=== PATIENT | female | born 1990 | race Caucasian/White ===

== ENCOUNTER 2019-12-09 02:51 | Emergency (ER) | payer MEDICAID, SELFPAY ==
[2019-12-09 02:53] VITALS: BP 131/82; PULSE 97; RESP 20; TEMP 36.7; O2SAT 100
--- NOTE | 2019-12-09 03:16 | ED.DENTAL ---
HPI - Dental/Oral General Chief complaint: Dental/Oral Stated complaint: Toothache Source: patient Mode of arrival: ambulatory Limitations: no limitations History of Present Illness HPI Narrative: This is a 29-year-old female who presents with a cracked left lower molar occurred approximately 1 to 2 weeks ago recently moved back to the area from [place] and yet to establish with a dentist. Pain has been present for the last couple weeks and has become more intense over last couple of days radiating into her left lower jaw and currently no fever or chills no nausea vomiting no shortness of breath has tried [id number] Tylenol with minimal relief and is currently and not sure how far along she is in her . MD Complaint: tooth pain and tooth injury Teeth map: 1. broken tooth Onset (ago): week(s) Duration: constant Severity: severe Severity scale (1-10): >10 Relieving factors: nothing Exacerbating factors: chewing, cold and drinking fluids Context: history of dental caries Related Data Home Medications Medication Instructions Recorded Confirmed PNV cmb#95-ferrous fumarate-FA 1 tablet PO DAILY 12/09/19 12/09/19 [] Allergies Allergy/AdvReac Type Severity Reaction Status Date / Time ondansetron [From Zofran] AdvReac Other Verified 12/09/19 03:02 Review of Systems Review of Systems: All systems reviewed & are unremarkable except as noted in HPI and below PMFSH Past Medical History Medical History Patient denies medical problems Social History Social History Gender identity (if verbalized by the patient): Female Exam Const: General: no acute distress and alert Orientation/consciousness: patient oriented x3 HENMT: Head: normal to inspection Other: left lower molar dental pain Eyes: Conjunctivae: conjunctivae normal Pupils: Equal, round and reactive pupils present EOM: EOMs intact bilaterally Neck: Neck: normal visual inspection, no lymphadenopathy and no meningeal signs Chest: Chest palpation & inspection: normal inspection of the chest Resp: Effort & Inspection: normal respiratory effort Auscultation: clear to auscultation bilaterally Cardio: Rate: regular rate Rhythm: regular rhythm GI: Auscultation: normal bowel sounds : General: Yes no CVA tenderness Back/Spine/Pelvis: Back: no CVA tenderness Skin: General skin exam: normal color Rashes: no rashes Neuro: General: patient oriented x3 and moves all extremities Extrem: General: normal to inspection Course Course Emergency Course: local nerve block to left lower molar area with 1% lidocaine patient tolerated procedure well and immediately noticed improvement in her pain after local injection. Vital Signs Vital signs: Vital Signs Temperature 36.7 C 12/09/19 02:53 Pulse Rate 97 12/09/19 02:53 Respiratory Rate 20 12/09/19 02:53 Blood Pressure 131/82 12/09/19 02:53 Pulse Oximetry 100 12/09/19 02:53 Temperature 36.7 C 12/09/19 02:53 Pulse Rate 97 12/09/19 02:53 Respiratory Rate 12/09/19 02:53 Blood Pressure 131/82 12/09/19 02:53 Pulse Oximetry 100 12/09/19 02:53 Procedures Nerve Block Nerve Block 1: Nerve block date: 12/09/19 Nerve block time: 03:20 Time out performed: Yes Local Anesthetic: lidocaine 1% Amount of anesthesia used (mL): 5 Side: left Nerve Blocks: other ( Dental) Patient Tolerated Procedure: well and no complications Complications: none Critical Care Time Critical Care Time Critical Care Time: No Discharge Plan Discharge Clinical Impression: Toothache, Fracture of tooth Patient Disposition: Home, Self-Care Condition: Stable Instructions: Antibiotic Form, Toothache (ED) Additional Instructions: follow-up with dentist as soon as possible for further ev
[2019-12-09] MEDS: AMOXICILLIN 500 MG CAPSULE PO (03:19)
[2019-12-09 03:32] VITALS: BP 118/70; PULSE 90; RESP 20; O2SAT 99
== END 2019-12-09 03:34 | disposition home or self-care (01) ==
PROVIDERS: Emergency Provider Emergency Medicine; PCP Family Medicine
DX: K08.89 Other specified disorders of teeth and supporting structures (principal); S02.5XXA Fracture of tooth (traumatic), initial encounter for closed fracture
CPT/HCPCS: 64999; 99283; A9270

== ENCOUNTER 2020-03-05 12:47 | Outpatient (CLI) | payer OTHER, SELFPAY ==
[2020-03-06 14:53] LABS: SARS-CoV-2 RNA PCR Negative
== END 2020-03-05 12:48 | disposition home or self-care (01) ==
PROVIDERS: PCP Family Medicine
DX: Z01.818 Encounter for other preprocedural examination (principal); Z20.828 Contact with and (suspected) exposure to other viral communicable diseases
CPT/HCPCS: 87635; C9803; U0003

== ENCOUNTER 2020-04-23 14:35 | Emergency (ER) | payer OTHER, SELFPAY ==
--- NOTE | ~2020-04-23 | US_ITS ---
EXAMINATION: US pelvic complete DATE: 04/23/2020 15:37 INDICATION: Vaginal bleeding six weeks TECHNIQUE: Multiple transabdominal and endovaginal sonographic images of the pelvis were obtained. COMPARISON: None. FINDINGS: The uterus measures 8.3 x 5.4 x 5.7 cm. The endometrial complex measures 17 mm and is heter ogenous in appearance. There is somewhat increased vascular flow to the endometrium. The ovaries are not visualized however no adnexal abnormality is seen. There is no free fluid in the pelvis. IMPRESSION: 1. Thickened and heterogeneous appearing endometrium with possible increased flow. Findings are nonsp ecific but could reflect retained products of conception. Reviewed, dictated and finalized at location A. [facility] IMPRESSION: 1. Thickened and heterogeneous appearing endometrium with possible increased fl ow. Findings are nonspecific but could reflect retained products of conception.
[2020-04-23 14:49] VITALS: BP 116/80; PULSE 88; RESP 18; TEMP 36.7; O2SAT 99
--- NOTE | 2020-04-23 15:17 | ED.GENADULT ---
HPI - General Adult General Chief complaint: Vaginal Bleeding Stated complaint: vaginal bleeding Source: patient Mode of arrival: ambulatory Limitations: no limitations History of Present Illness HPI narrative: Mallika is a previously healthy 29F ( w/ 4 Csections) that presented to the Ed with vaginal bleeding. She had a on and has had some spotting since. However, 3 days ago she started having increased vaginal bleeding. She reports soaking through a pad every hour for the last 3 days and it is not slowing down. This is much more than her normal menses. She breast fed originally but stopped after a couple weeks. She also reports a foul odor. No CP, SOB, N/V, diarrhea, dysuria or fevers. She does admit chills. She called her OB with these symptoms who recommend that she go to the ED. Related Data Home Medications Medication Instructions Recorded Confirmed No Home Medications 04/23/20 04/23/20 Allergies Allergy/AdvReac Type Severity Reaction Status Date / Time ondansetron [From Zofran] AdvReac Other Verified 12/09/19 03:02 Review of Systems Constitutional: Constitutional: Reports chills, Denies fatigue and Denies fever(s) Eyes: Eyes: Reports no additional eye complaints ENT: Reports system reviewed and no additional complaints, except as documented Cardiovascular: Cardiovascular: Reports no additional cardiovascular complaints Respiratory: Respiratory: Reports no additional respiratory complaints Gastrointestinal: Gastrointestinal: Reports no additional gastrointestinal complaints Genitourinary: Genitourinary: Reports as per HPI Musculoskeletal: Musculoskeletal: Reports no additional musculoskeletal complaints Integumentary/Breasts: Skin/Breast: Reports system reviewed and no additional complaints, except as docu Neurologic: Reports system reviewed and no additional complaints, except as documented Psychiatric: Psychiatric: Reports no additional psychiatric complaints Endocrine: Endocrine: Reports no additional endocrine complaints Hematologic/Lymphatic: Hematologic/Lymphatic: Reports no additional hematologic/lymphatic complaints Allergic/Immunologic: Allergic/Immunologic: Reports no additional allergic/immunologic complaints [facility] Past Medical History Medical History (Updated 04/23/20 @ 17:13 by Jay Whipple DO) Patient denies medical problems Social History Social History Gender identity (if verbalized by the patient): Female Exam Const: General: no acute distress and alert Nutritional Appearance: well nourished Orientation/consciousness: patient oriented x3 Limitations: No altered mental status HENMT: Head: normal to inspection Eyes: Conjunctivae: conjunctivae normal Pupils: Equal, round and reactive pupils present Neck: Neck: normal visual inspection Chest: Chest palpation & inspection: normal inspection of the chest Resp: Effort & Inspection: normal respiratory effort Auscultation: clear to auscultation bilaterally Cardio: Rate: regular rate Rhythm: regular rhythm GI: GI Palp: Yes Soft to palpation, No Tenderness to palpation present (GI) and No Guarding due to palpation present (GI) : General: Yes no CVA tenderness Other: Deferred vaginal exam as the US showed potential retained products and she will need another exam anywayfor the procedure so will wait to save her discomfort Back/Spine/Pelvis: Back: no CVA tenderness Skin: General skin exam: normal color Neuro: General: patient oriented x3 and moves all extremities Extrem: General: normal to inspection Psych: Mental Status: mental status grossly normal Course Course Emergency Course: Mallika was evaluated. Ordered labs, UA and US. EXAMINATION: US pelvic complete DATE: 04/23/2020 15:37 INDICATION: Vaginal bleeding six weeks TECHNIQUE: Multiple transabdominal and endovaginal sonographic images of the pelvis were ob
[2020-04-23 15:41] LABS: Basophils Absolute Auto 0.03 K/mm3 (0.00-0.10); Basophils Percent Auto 0.4 % (0.0-1.0); Eosinophils Absolute Auto 0.07 K/mm3 (0.02-0.50); Hemoglobin 12.2 g/dL (12.0-15.0); Immature Granulocyte Absolute 0.01 K/mm3 (0.00-0.00); Immature Granulocyte Percent A 0.1 % (0.0-0.0); Lymphocytes Absolute Auto 3.45 K/mm3 (1.10-4.50); Lymphocytes Percent Auto 48.1 % (18.0-42.0); Mean Corpuscular HGB Conc 32.1 g/dL (32.0-36.0); Mean Corpuscular Volume 87.2 fL (78.0-102.0); Mean Platelet Volume 9.2 fl (9.2-11.8); Monocytes Absolute Auto 0.32 K/mm3 (0.10-0.90); Monocytes Percent Auto 4.5 % (2.0-11.0); Neutrophils Absolute Auto 3.3 K/mm3 (1.7-7.2); Neutrophils Percent Auto 45.9 % (50.0-70.0); Platelet Count Result 362 K/mm3 (150-420); Red Blood Count 4.36 M/mm3 (4.20-5.40); Red Cell Distribution Width 14.8 % (11.6-14.4); White Blood Count 7.2 K/mm3 (4.8-10.8)
[2020-04-23 15:53] LABS: INR 0.9; Prothrombin Time 10.3 Seconds (9.50-12.10)
[2020-04-23 15:55] LABS: Add Urine Microscopic? YES; Appearance Urine Turbid (Clear); Bilirubin Urine 1+ (Negative); Blood Urine 3+ (Negative); Color Urine Red (Yellow); Glucose Urine UA Negative (Negative); Ketones Urine Trace (Negative); Leukocyte Esterase Ur Negative LEU/UL (Negative); Nitrate Urine Negative (Negative); Protein Urine 2+ (Negative); Specific Grav Ur >= 1.030 (1.010-1.020); Urobilinogen Urine 0.2 mg/dL (0.2-1.0); pH Urine 5.5 (5.0-8.0)
[2020-04-23 15:58] LABS: Alanine Aminotransferase 31 U/L (14-59); Albumin Level 3.5 g/dL (3.4-5.0); Alkaline Phosphatase 84 U/L (46-116); Anion Gap 5 mmol/L (8-16); Aspartate Amino Transferase 17 U/L (15-37); Bilirubin,Total 0.2 mg/dL (0.00-1.00); Blood Urea Nitrogen 11 mg/dL (7-18); Calcium 9.1 mg/dL (8.5-10.1); Carbon Dioxide 28 mmol/L (21-32); Chloride 104 mmol/L (98-108); Estimated CRCL calculation 76 ml/min; Estimated Glomerular Filt Rate > 60; Glucose 86 mg/dL (70-99); Osmolality Calculated 282 mOsm/kg (285-295); Potassium 3.9 mmol/L (3.5-5.1); Sodium 137 mmol/L (136-145); Total Protein 6.9 g/dL (6.4-8.2)
[2020-04-23 16:01] LABS: RBC Urine >75 /hpf (0-2)
[2020-04-23 16:02] LABS: Bacteria Urine 2+ /hpf; Squamous Epithelial Cell Urine Few /hpf (Few)
[2020-04-23 16:25] VITALS: BP 116/64; PULSE 78
[2020-04-23 16:32] VITALS: BP 118/82; PULSE 89
--- NOTE | 2020-04-23 17:29 | PC.NURSE ---
Pt to go to [facility] room 292
== END 2020-04-23 17:41 | disposition short-term general hospital (02) ==
PROVIDERS: Emergency Provider Family Medicine
DX: O72.2 Delayed and secondary postpartum hemorrhage (principal)
CPT/HCPCS: 36415; 76856; 80053; 81001; 85025; 85610; 86850; 86900; 86901; 87491; 87591; 87661; 99284; 99285

== ENCOUNTER 2020-04-23 19:30 | Observation (INO) | payer OTHER, SELFPAY ==
--- NOTE | 2020-04-23 19:17 | ADMGEN ---
This patient, Mallika Casiano, was admitted to OB 2nd Floor Room 291-00. Patient/family oriented to hospital policies and general routines including ID bracelet, bed and alarms, visiting hours, pain management, procedures, bathroom and other care routines, personal items, smoking policy, room service/diet, and visiting hours. Information on how to activate the Rapid Response Team has been discussed. Patient/Family are encouraged to report perceived risks to care and to ask questions if they do not understand what they are told or what they should do.
--- NOTE | 2020-04-23 19:34 | PM.IMHP ---
H&P: HPI History of Present Illness Date/Time: 04/23/20 19:34 Chief Complaint: vaginal bleeding Narrative: Mallika Casiano is a 29 year old female who was transferred to us after presenting to the ED in [place] for vaginal bleeding. Pt had a repeat delivery on 03/08/20. She states she had normal expected bleeding immediately . She states there was one point a few weeks ago she thought she had an infection as she had some pelvic discomfort and an odor to her bleeding. She denies any fevers, chills, nausea, vomiting. Pt states her bleeding lightened up after a few weeks but still had daily spotting. She states that 3 days ago her bleeding increased. She is having bleeding heavier than a period. Pt states she was wearing 2 pads at a time and soaking through to her clothing. Of note, pt states she stopped breast feeding approximately 2 weeks ago. She had a pelvic US in [place] that showed an endometrial thickness of 17mm with heterogenous material possibly retained products. Pt states her bleeding has slowed down since her initial presentation. Review of Systems Review of Systems: All systems reviewed & are unremarkable except as noted in HPI and below PMFSH Past Medical History Medical History Patient denies medical problems Social History Social History (Updated 04/23/20 @ 19:39 by Gallito Frausto MD) Smoking packs per day: 0.5 Smoking cigarettes per day: 10.0 Smoking status: Current every day smoker Tobacco type: cigarettes Gender identity (if verbalized by the patient): Female Meds Home Medications and Allergies Home Medications Medication Instructions Recorded Confirmed Type No Home Medications 04/23/20 04/23/20 History Allergies Allergy/AdvReac Type Severity Reaction Status Date / Time ondansetron [From Zofran] AdvReac Other Verified 12/09/19 03:02 Exam Const: General: cooperative and healthy appearing HENMT: Head: normal to inspection Eyes: General: appearance normal, both eyes and all related structures Neck: Neck: normal visual inspection Resp: Effort & Inspection: normal respiratory effort Auscultation: clear to auscultation bilaterally Cardio: Jugular venous distension: no JVD Rate: regular rate Rhythm: regular rhythm GI: Inspection: normal to inspection GI Palp: No abdominal tenderness, Yes Soft to palpation and No Guarding due to palpation present (GI) Auscultation: normal bowel sounds : External Female Exam: normal external appearance Speculum Exam - Vagina: normal appearance of the vagina, normal vaginal discharge, no lacerations, no lesions and vaginal bleeding (dark dried blood in the vaginal vault, no active bleeding) Speculum Exam - Cervix: normal appearance of the cervix Skin: General skin exam: normal color and no rashes or lesions noted Neuro: Cognition (Neuro): normal cognition Speech: normal speech Extrem: General: normal to inspection and full ROM Psych: Appearance: grossly normal Mental Status: mental status grossly normal Speech and movement: Normal speech and movement present Assessment and Plan Assessment and plan (1) Hemorrhage due to retained products of conception: Code(s): O72.2 - Delayed and secondary hemorrhage Status: Acute Assessment and Plan: Pt is s/p repeat c/section on 03/08/20 pt had acute menorrhagia starting 3 days ago pt reports continued bleeding since delivery no acute bleeding on exam, pt had a dry pad since she left the other hospital [facility] H/H pelvic US showed endometrial thickness of 17mm with heterogenous material, possibly retained products of conception given pt acute menorrhagia and US findings, would recommend and dilation plan for NPO after midnight and D&C tomorrow Will give IVF at 125 ml/hr overnight will start tranexamic acid to stop any further bleeding prior to surgery
[2020-04-23 19:45] VITALS: BP 110/61; PULSE 84; RESP 16; TEMP 36.4; O2SAT 100
[2020-04-23] MEDS: LACTATED RINGERS 1,000 ML 125 ML IV CONT (21:05)
[2020-04-23] MEDS: TRANEXAMIC ACID 1,000MG/ISO100 1,000 MG/100 ML BAG 200 MG IVPB (21:06)
[2020-04-23] MEDS: NICOTINE (*PBKC) 21 MG PATCH 1 PATCH TRANSDERM (21:47)
[2020-04-24] VITALS (12 sets, daily range): BP systolic 99–113; BP diastolic 63–79; PULSE 60–92; RESP 12–20; TEMP 36.1–36.9; O2SAT 97–100; BMI 24.6
[2020-04-24 05:08] LABS: Hematocrit 34.3 % (37.0-47.0)
[2020-04-24] MEDS: LACTATED RINGERS 1,000 ML 30 ML IV CONT (07:00)
--- NOTE | 2020-04-24 07:24 | PC.NURSE ---
Pt. to surgery via stretcher at 0645. Report given via phone SBAR sent.
--- NOTE | 2020-04-24 07:24 | WPDHPUPDATE1 ---
History and Physical Update Update Date/Time: 04/24/20 07:24 History and Physical has been reviewed, including an updated exam of the patient. There are NO changes in the patient's condition. Risks, benefits, and alternatives have been discussed and questions answered. Patient agrees to proceed with procedure.
--- NOTE | 2020-04-24 07:53 | WPDANESEPPF ---
Anes - Initial Pre Proc Eval Procedure: Operation Date: 04/24/20 08:00 Proposed Procedures p SUCTION DILITATION AND CURETTAGE - Gallito Frausto MD Date/Time: 04/24/20 07:53 Surgeon: Gallito Frausto MD Pre Op Diagnosis: Retained Products of Conception with Hemorrhage Patient Data Age: 29 Gender: F Height: 1.68 m Weight: 69.3 kg Last Vital Signs Temp 36.2 C L 04/24/20 04:00 Pulse 92 04/24/20 04:00 Resp 16 04/24/20 04:00 BP 111/74 04/24/20 04:00 Pulse Ox 100 04/24/20 04:00 Allergies Allergy/AdvReac Type Severity Reaction Status Date / Time ondansetron [From Zofran] AdvReac Unknown Hives Verified 04/24/20 06:56 Home Medications Medication Instructions Recorded Confirmed Type No Home Medications 04/23/20 04/24/20 History Laboratory Tests 04/24/20 04:29 Hgb 11.0 g/dL L g/dL (12.0-15.0) Hct 34.3 % L % (37.0-47.0) Patient hx anesthesia problems: none Family hx anesthesia problems: none ON LICENSE OF [facility] Past Medical History Medical History (Updated 04/24/20 @ 00:00 by Reva Reece) Patient denies medical problems Social History Social History (Updated 04/23/20 @ 19:39 by Gallito Frausto MD) Smoking packs per day: 0.5 Smoking cigarettes per day: 10.0 Smoking status: Current every day smoker Tobacco type: cigarettes Gender identity (if verbalized by the patient): Female Anes - Eval Final PreProcedure Day of Procedure 04/24/20 07:53 Patient weight: normal Heart: regular rate and rhythm Lungs: clear to auscultation and normal air movement Airway: Mallampati scale class II Neurological: alert and oriented Last oral intake: >/= 8 hours ASA classification: II Emergent: no Anesthetic plan: proceed Anesthesia type and monitoring: general GIVS and standard monitoring Informed Consent: The patient's anesthetic plan and its attendant risks and benefits were discussed with the patient/family/POA. Questions were solicited and answers provided to the satisfaction of the patient/family/POA.
--- NOTE | 2020-04-24 08:29 | PM.PROC ---
Procedure Note - Detailed Date of procedure: 04/24/20 Pre-op diagnosis: Retained Products of Conception with Hemorrhage Post-op diagnosis: same Procedure performed: Suction dilation and curettage Description of procedure: Antibiotics: Doxycycline Findings: endometrial cavity with heterogeneous material possibly products of conception Complications: none Specimens: endometrial contents- products of conception EBL: 100 mL Indications: Patients presented with acute onset menorrhagia 6 weeks . US showed thickened endometrial cavity with heterogeneous material possibly products of conception. Procedure: The patient was taken to the operating room after thickened endometrium had been noted on on transvaginal ultrasound. The risks, benefits and alternatives of the procedure were reviewed with the patient and informed consent was obtained. The patient was taken to the OR and anesthesia was noted to be adequate. The patient was placed in the dorsolithotomy position. Pelvic exam was performed with findings noted above. The patient was prepped and draped in the usual sterile fashion. Watson retractors were placed anteriorly and posteriorly in the vagina and the cervix was grasped with an Tenaculum clamp. Paracervical block was then performed. The cervix was dilated further to allow for passage of a 8mm suction curette. The 8mm suction curette was gently advanced to the fundus, suction was activated, and the tip was rotated while being withdrawn to clear the uterus of products all under direct US visualization. This suction process was repeated 4 additional times due to the quantity of material in the uterus. The sharp curette was introduced and advanced to the fundus to remove any remaining products. The suction curette was reintroduced one final time to ensure all products had been removed, again all under US guidance. The Tenaculum clamp was removed. Good hemostasis was noted. Instrument, sponge, and sharp counts were correct. Patient tolerated the procedure well and was taken to the recovery room in stable condition. Surgeon: Gallito Frausto MD Estimated blood loss (mL): 100 Urine output (mL): 50 Drains: No Packing: No Pathology: yes (endometrial contents) Complications: No immediate complications Condition: stable Disposition: PACU
[2020-04-24] MEDS: fentaNYL CITRATE INJ (*CRX) 100 MCG/2 ML VIAL 25 MCG IV PUSH ×6 (08:52→09:17)
[2020-04-24] MEDS: DOXYCYCLINE HYCLATE 100 MG TABLET 200 MG PO (11:53)
--- NOTE | 2020-04-25 07:10 | WPDANESPN ---
Anes - Prog Note Post-Op Date/Time: 04/25/20 07:10 Cardiovascular status: normal Respiratory status: normal Airway patency: baseline Mental status: baseline Post-Op hydration status: normal Vital Signs: Last Vital Signs Temp 98.4 F 04/24/20 10:30 Pulse 67 04/24/20 10:30 Resp 16 04/24/20 10:30 BP 113/64 04/24/20 10:30 Pulse Ox 100 04/24/20 10:30 Pain Score (VAS): 05/06 I/O: Intake & Output 04/24/20 04/24/20 04/25/20 15:59 23:59 07:59 Intake Total 300 Output Total 100 Balance 200 Laboratory Tests 04/24/20 04:29 Post-procedural complaints: none Patient Feedback: Patient satisfied with anesthetic care.
--- NOTE | 2020-05-03 07:15 | PM.DS ---
DS: Admitting Diagnosis Admitting Diagnosis Admitting Diagnosis: abnormal uterine bleeding DS: Summary Hospital Course Hospital Course: 29 yo female who presented with acute menorrhagia. Pt underwent suction D&C for surgical management. Hospital course was uncomplicated and she was d/c home on HD#1. Status at Discharge Functional status at discharge: independent ambulation Overall status at discharge: patient is back to baseline Time Spent with Patient Time attestation: Total time spent providing and/or coordinating discharge services: Time spent: Less than 30 minutes DS: Data Data Completed and Pending Completed studies during hospitalization: Pending at discharge 04/24/20 08:21 Surgical [PTH] Routine Discharge Plan Discharge Attending physician on discharge: Gallito Frausto Discharging Clinician: Gallito Frausto Patient Disposition: Home, Self-Care Activity: pelvic rest Diet: regular Patient Instructions: Dilation and Curettage (DC) Stand Alone Forms: General Discharge Information Follow-up/Referrals: Gallito Frausto MD [Physician] - 2 Weeks Discharge Medications: New acetaminophen 500 mg capsule 500 mg PO Q6H PRN (Reason: pain) Qty: 30 RF: 0 ibuprofen 600 mg tablet 600 mg PO Q6H PRN (Reason: pain) Qty: 30 RF: 0 norethindrone (contraceptive) [Ortho Micronor] 0.35 mg tablet 0.35 mg PO DAILY Qty: 84 RF: 3 Date of admission: 04/23/20 19:30 Primary Care Provider: UNKNOWN,DOCTOR Admitting Provider: Gallito Frausto Attending physician on admission: Gallito Frausto Condition: Stable
== END 2020-04-24 11:57 | disposition home or self-care (01) ==
PROVIDERS: Admitting Provider Student in an Organized Health Care Education/Training Program; Visit Provider Student in an Organized Health Care Education/Training Program
PROC: (CPT 59160; principal; 2020-04-24 08:00)
DX: O72.2 Delayed and secondary postpartum hemorrhage (principal); F17.210 Nicotine dependence, cigarettes, uncomplicated
CPT/HCPCS: 59160; 36415; 85014; 85018; 88305; 96365; A9270; G0378; G0379; J2250; J2704; J3010; J7120

== ENCOUNTER 2020-05-08 16:05 | Emergency (ER) | payer OTHER, SELFPAY ==
[2020-05-08 16:27] VITALS: BP 124/99; PULSE 90; RESP 20; TEMP 36.3; O2SAT 99
[2020-05-08 16:57] LABS: Pregnancy On Board Control Positive; Urine Pregnancy Test Negative
[2020-05-08 17:01] LABS: Appearance Urine Sl Cloudy (Clear); Bilirubin Urine 1+ (Negative); Color Urine Yellow (Yellow); Glucose Urine UA Negative (Negative); Ketones Urine 1+ (Negative); Leukocyte Esterase Ur Negative (Negative); Nitrate Urine Negative (Negative); Protein Urine Negative (Negative); Specific Grav Ur >= 1.030 (1.010-1.020); Urobilinogen Urine 0.2 mg/dL (0.2-1.0); pH Urine 5.5 (5.0-8.0)
[2020-05-08 17:02] LABS: Add Urine Microscopic? YES; Blood Urine Trace-Intact (Negative)
[2020-05-08 17:05] LABS: WBC Urine 0-3 /hpf (0-3)
[2020-05-08 17:06] LABS: Bacteria Urine 3+ /hpf; Squamous Epithelial Cell Urine Many /hpf (Few)
[2020-05-08] MEDS: ONDANSETRON HCL ODT 4 MG TABLET PO (17:07)
[2020-05-08] MEDS: PROCHLORPERAZINE MALEATE 5 MG TABLET PO (17:07)
[2020-05-08] MEDS: KETOROLAC (*BKC) 60 MG/2 ML VIAL IM (17:08)
[2020-05-08] MEDS: DIVALPROEX SODIUM 250 MG TAB.ER.24H 750 MG PO (17:09)
[2020-05-08 17:14] LABS: Basophils Absolute Auto 0.02 K/mm3 (0.00-0.10); Basophils Percent Auto 0.3 % (0.0-1.0); Eosinophils Absolute Auto 0.02 K/mm3 (0.02-0.50); Eosinophils Percent Auto 0.3 % (1.0-6.0); Hemoglobin 13.2 g/dL (12.0-15.0); Immature Granulocyte Absolute 0.02 K/mm3 (0.00-0.00); Immature Granulocyte Percent A 0.3 % (0.0-0.0); Lymphocytes Absolute Auto 3.07 K/mm3 (1.10-4.50); Lymphocytes Percent Auto 43.2 % (18.0-42.0); Mean Corpuscular HGB Conc 32.2 g/dL (32.0-36.0); Mean Corpuscular Hemoglobin 27.8 pg (27.0-31.0); Mean Corpuscular Volume 86.5 fL (78.0-102.0); Mean Platelet Volume 8.9 fl (9.2-11.8); Monocytes Absolute Auto 0.29 K/mm3 (0.10-0.90); Monocytes Percent Auto 4.1 % (2.0-11.0); Neutrophils Absolute Auto 3.7 K/mm3 (1.7-7.2); Neutrophils Percent Auto 51.8 % (50.0-70.0); Platelet Count Result 330 K/mm3 (150-420); Red Blood Count 4.74 M/mm3 (4.20-5.40); Red Cell Distribution Width 15.3 % (11.6-14.4); White Blood Count 7.1 K/mm3 (4.8-10.8)
--- NOTE | 2020-05-08 17:19 | ED.HA ---
HPI - Headache General Chief Complaint: Headache Stated Complaint: headache Time Seen by Provider: 05/08/20 16:35 Source: patient Mode of arrival: ambulatory Limitations: no limitations History of Present Illness HPI Narrative: Patient comes in with headache, similar to migraines she has had that has gone on for 1 week. She comes in because of continued discomfort. Head ache is sharp, moderately severe, ongoing, partially relieved by tylenol. Nothing has helped stop the headache at home. She has throbbing pain behind her right eye that has been ongoing for 1 week. Pertinent past history: migraines Onset description: gradually Location: right Severity: moderate Quality & Timing: throbbing Exacerbating factors: exertion, light and noise Relieving factors: nothing, rest, dark room and sleep Associated symptoms: none Treatments prior to arrival: acetaminophen Related Data Allergies Allergy/AdvReac Type Severity Reaction Status Date / Time ondansetron [From Zofran] AdvReac Unknown Hives Verified 04/24/20 06:56 Review of Systems Constitutional: Constitutional: Reports no additional constitutional complaints Eyes: Eyes: Reports no additional eye complaints ENT: Reports system reviewed and no additional complaints, except as documented Cardiovascular: Cardiovascular: Reports no additional cardiovascular complaints Respiratory: Respiratory: Reports no additional respiratory complaints Gastrointestinal: Gastrointestinal: Reports no additional gastrointestinal complaints Genitourinary: Genitourinary: Reports no additional female genitourinary complaints Musculoskeletal: Musculoskeletal: Reports no additional musculoskeletal complaints Integumentary/Breasts: Skin/Breast: Reports system reviewed and no additional complaints, except as docu Neurologic: Reports system reviewed and no additional complaints, except as documented Psychiatric: Psychiatric: Reports no additional psychiatric complaints Endocrine: Endocrine: Reports no additional endocrine complaints Hematologic/Lymphatic: Hematologic/Lymphatic: Reports no additional hematologic/lymphatic complaints Allergic/Immunologic: Allergic/Immunologic: Reports no additional allergic/immunologic complaints [facility] Past Medical History Medical History (Updated 05/09/20 @ 03:26 by Darwin Salguero MD) Patient denies medical problems Social History Social History Smoking packs per day: 0.5 Smoking cigarettes per day: 10.0 Smoking status: Current every day smoker Tobacco type: cigarettes Gender identity (if verbalized by the patient): Female Exam Const: Orientation/consciousness: patient oriented x3 HENMT: Head: normal to inspection Ears: external ears normal and TM's normal bilaterally General nose exam: Normal external nose present and Normal nares present Face and sinus: normal facial exam Teeth and gingiva: dentition normal Throat: posterior oropharynx normal Eyes: Conjunctivae: conjunctivae normal Neck: Neck: normal visual inspection Chest: Chest palpation & inspection: normal inspection of the chest Resp: Effort & Inspection: normal respiratory effort Auscultation: clear to auscultation bilaterally Cardio: Rate: regular rate Rhythm: regular rhythm GI: GI Palp: Yes Soft to palpation : General: Yes no CVA tenderness Back/Spine/Pelvis: Back: no CVA tenderness Skin: General skin exam: normal color Neuro: General: patient oriented x3 Extrem: General: normal to inspection Psych: Appearance: grossly normal Mental Status: mental status grossly normal Thought content: Yes Normal thought content present Course Course Emergency Course: She was given ketorolac 60mg IM, zofran 4mg odt, compazine 5mg po, and depakote 750mg po. in a few minutes she was feeling better and was ready for discharge. I asked her to follow up with her family doctor soon regarding the need for a preventative drug
[2020-05-08 17:24] LABS: Anion Gap 8 mmol/L (8-16); Blood Urea Nitrogen 8 mg/dL (7-18); Calcium 9.1 mg/dL (8.5-10.1); Carbon Dioxide 26 mmol/L (21-32); Chloride 102 mmol/L (98-108); Estimated CRCL calculation 85 ml/min; Estimated Glomerular Filt Rate > 60; Glucose 111 mg/dL (70-99); Osmolality Calculated 281 mOsm/kg (285-295); Potassium 4.4 mmol/L (3.5-5.1); Sodium 136 mmol/L (136-145)
[2020-05-08 17:58] VITALS: BP 119/91; PULSE 90; RESP 20; O2SAT 100
== END 2020-05-08 17:58 | disposition home or self-care (01) ==
PROVIDERS: Emergency Provider Emergency Medicine; PCP Family Medicine
DX: G43.011 Migraine without aura, intractable, with status migrainosus (principal)
CPT/HCPCS: 36415; 80048; 81001; 81025; 85025; 96372; 99283; A9270; J1885

== ENCOUNTER 2020-05-26 19:26 | Emergency (ER) | payer OTHER, SELFPAY ==
[2020-05-26 19:30] VITALS: BP 118/78; PULSE 105; RESP 20; TEMP 36.9; O2SAT 100
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
[2020-05-26 19:49] VITALS: BP 120/74; PULSE 100; RESP 18; O2SAT 98
== END 2020-05-26 19:55 | disposition home or self-care (01) ==
PROVIDERS: Emergency Provider Emergency Medicine; PCP Family Medicine
DX: H72.2X1 Other marginal perforations of tympanic membrane, right ear (principal)
CPT/HCPCS: 99281; 99282